=== PATIENT | male | born 1965 | race Asian ===

== ENCOUNTER 2017-08-31 13:56 | Inpatient (IN) | payer OTHER ==
[2017-08-31 15:53] LABS: ADD MAN DIFF? NO
[2017-08-31] MEDS: ONDANSETRON PF 4 MG/2 ML VIAL. IV (15:53)
[2017-08-31] MEDS: IV NORMAL SALINE 1000ML BAG 1,000 ML IV ×3 (15:53→19:51)
[2017-08-31] MEDS: fentaNYL PF VIAL 100 MCG/2 ML VIAL IV (15:56)
[2017-08-31 16:00] LABS: BASO % 0 % (0-3); EOS % 0 % (0-3); HEMATOCRIT 54.4 % (39.0-53.0); HEMOGLOBIN 19.3 g/dL (13.0-17.5); LYMPH # 0.7 x10^3/uL (1.0-4.8); LYMPH % 8 % (24-48); MEAN CORPUSCULAR HEMOGLOBIN 32 pg (25-35); MEAN CORPUSCULAR HGB CONC 36 g/dL (31-37); MEAN CORPUSCULAR VOLUME 90 fL (79-100); MONO # 1.1 x10^3/uL (0.0-1.1); MONO % 12 % (0-9); NEUT # 7.1 x10^3uL (1.8-7.7); NEUT % 79 % (31-73); PLATELET COUNT 190 x10^3/uL (140-400); RED BLOOD COUNT 6.02 x10^6/uL (4.30-5.70); RED CELL DISTRIBUTION WIDTH 12.5 % (11.5-14.5)
[2017-08-31 16:06] LABS: PROTHROMBIN TIME PATIENT 12.1 SEC (11.7-14.0)
[2017-08-31 16:13] LABS: ANION GAP 13 (6-14); BLOOD UREA NITROGEN 54 mg/dL (8-26); CALCIUM 8.9 mg/dL (8.5-10.1); CARBON DIOXIDE 24 mmol/L (21-32); CHLORIDE 94 mmol/L (98-107); GFR 35.1; GLUCOSE 127 mg/dL (70-99); POTASSIUM 4.7 mmol/L (3.5-5.1); SODIUM 131 mmol/L (136-145)
[2017-08-31] MEDS: IOHEXOL 300 MG/ML 100ML VIAL. IV (16:15)
[2017-08-31] MEDS ORDERED: CONTRAST GIVEN MC (16:15)
[2017-08-31 16:17] LABS: ALBUMIN 3.9 g/dL (3.4-5.0); ALK PHOS 102 U/L (46-116); ALT (SGPT) 79 U/L (16-63); AST (SGOT) 71 U/L (15-37); DIRECT BILIRUBIN 0.3 mg/dL (0.0-0.2); LIPASE 238 U/L (73-393); MAGNESIUM 2.6 mg/dL (1.8-2.4); TOTAL BILIRUBIN 1.1 mg/dL (0.2-1.0); TOTAL PROTEIN 9.3 g/dL (6.4-8.2)
[2017-08-31 16:20] LABS: TROPONINI < 0.017 ng/mL (0.000-0.055)
[2017-08-31 16:27] LABS: NT-PRO BNP 37 pg/mL (0-124)
[2017-08-31 16:27] LABS: CKMB INDEX 0.5 % (0-4); CKMB MASS 4.8 ng/mL (0.0-3.6); CREATINE KINASE 969 U/L (39-308)
[2017-08-31 17:00] LABS: LACTIC ACID 1.5 mmol/L (0.4-2.0)
[2017-08-31] MEDS ORDERED: diphenhydrAMINE HCL 25 MG CAPSULE PO (18:30)
[2017-08-31] MEDS ORDERED: MORPHINE SULFATE 2 MG/ML DISP.SYRIN. IV (18:30)
[2017-08-31] MEDS ORDERED: PIP/TAZO PER PHARMACY MC ×2 (18:30)
[2017-08-31] MEDS ORDERED: ACETAMINOPHEN 500 MG TABLET PO (18:30)
[2017-08-31] MEDS ORDERED: ONDANSETRON PF 4 MG/2 ML VIAL. IV (18:30)
[2017-08-31] MEDS: PIPERACILLIN/TAZOBACTAM 3.375 GM in IV NORMAL SALINE 50ML 50 ML IV (18:38)
[2017-08-31 18:48] LABS: BILIRUBIN,URINE NEGATIVE (NEG); CLARITY,URINE CLEAR; COLOR,URINE YELLOW; GLUCOSE,URINE NEGATIVE (NEG); NITRITE,URINE NEGATIVE (NEG); PROTEIN,URINE 30 mg/dL (NEG-TRACE)
[2017-08-31 18:54] LABS: BACTERIA,URINE 0 /HPF (0-FEW); RBC,URINE OCC /HPF (0-2); WBC,URINE 0 /HPF (0-4)
[2017-08-31 18:55] LABS: HYALINE CASTS, URINE FEW /HPF
[2017-08-31] MEDS: IV DEXTROSE 5 %-0.45 % NACL 1,000 ML IV (18:58)
[2017-09-01] MEDS: PIPERACILLIN/TAZOBACTAM 3.375 GM in IV NORMAL SALINE 50ML 50 ML IV ×4 (00:23→18:00)
[2017-09-01 04:17] LABS: ADD MAN DIFF? NO
[2017-09-01 04:35] LABS: BASO % 0 % (0-3); EOS % 0 % (0-3); HEMATOCRIT 42.8 % (39.0-53.0); HEMOGLOBIN 14.7 g/dL (13.0-17.5); LYMPH # 0.9 x10^3/uL (1.0-4.8); LYMPH % 15 % (24-48); MEAN CORPUSCULAR HEMOGLOBIN 32 pg (25-35); MEAN CORPUSCULAR HGB CONC 34 g/dL (31-37); MEAN CORPUSCULAR VOLUME 92 fL (79-100); MONO # 0.8 x10^3/uL (0.0-1.1); MONO % 13 % (0-9); NEUT # 4.5 x10^3uL (1.8-7.7); NEUT % 73 % (31-73); PLATELET COUNT 139 x10^3/uL (140-400); RED BLOOD COUNT 4.65 x10^6/uL (4.30-5.70); RED CELL DISTRIBUTION WIDTH 12.4 % (11.5-14.5); WHITE BLOOD COUNT 6.3 x10^3/uL (4.0-11.0)
[2017-09-01 04:49] LABS: ANION GAP 7 (6-14); BLOOD UREA NITROGEN 36 mg/dL (8-26); CALCIUM 7.2 mg/dL (8.5-10.1); CARBON DIOXIDE 25 mmol/L (21-32); CHLORIDE 104 mmol/L (98-107); CREATININE 1.6 mg/dL (0.7-1.3); GFR 45.4; GLUCOSE 101 mg/dL (70-99); POTASSIUM 4.9 mmol/L (3.5-5.1); SODIUM 136 mmol/L (136-145)
[2017-09-01 05:03] LABS: TROPONINI 0.021 ng/mL (0.000-0.055)
[2017-09-01] MEDS: IV NORMAL SALINE 1000ML BAG 1,000 ML IV ×3 (05:42→18:30)
[2017-09-01 08:13] LABS: TROPONINI 0.017 ng/mL (0.000-0.055)
[2017-09-01] MEDS: HYDROcodone/APAP 5/325MG 1 TAB TABLET PO (08:30)
[2017-09-01] MEDS ORDERED: cefOXitin SODIUM 2 GM in IV DEXTROSE 5% 100 ML IV (08:30)
[2017-09-01] MEDS: IV RINGERS,LACTATED 1000ML 1,000 ML IV ×2 (09:34→15:10)
[2017-09-01] MEDS ORDERED: ONDANSETRON PF 4 MG/2 ML VIAL. IV (09:45)
[2017-09-01] MEDS ORDERED: PROCHLORPERAZINE 10 MG/2 ML VIAL. IV (09:45)
[2017-09-01] MEDS ORDERED: HYDROmorphone 2 MG/ML VIAL IV (09:45)
[2017-09-01] MEDS ORDERED: MORPHINE SULFATE 2 MG/ML DISP.SYRIN. IV (09:45)
[2017-09-01] MEDS ORDERED: fentaNYL PF VIAL 100 MCG/2 ML VIAL IV ×2 (09:45)
[2017-09-01] MEDS ORDERED: LIDOCAINE 1% PF 2 ML VIAL. ID (09:45)
[2017-09-01] MEDS ORDERED: MIDAZOLAM HCL/PF 2 MG/2 ML VIAL. (10:22)
[2017-09-01] MEDS ORDERED: fentaNYL PF VIAL 100 MCG/2 ML VIAL (10:22)
[2017-09-01] MEDS ORDERED: GLYCOPYRROLATE 1 MG/5 ML VIAL. (10:23)
[2017-09-01] MEDS ORDERED: KETOROLAC 30 MG/ML INJ FOR OR. INJ (10:23)
[2017-09-01] MEDS ORDERED: NEOSTIGMINE METHYLSULFATE 5 MG/5 ML SYRINGE. (10:23)
[2017-09-01] MEDS ORDERED: DEXAMETHASONE SOD PHOS 20 MG/5 ML VIAL. (10:23)
[2017-09-01] MEDS ORDERED: ROCURONIUM 50 MG/5 ML VIAL. (10:23)
[2017-09-01] MEDS ORDERED: ONDANSETRON PF 4 MG/2 ML VIAL. (10:23)
[2017-09-01] MEDS ORDERED: PROPOFOL 20 ML IV (10:23)
[2017-09-01] MEDS: BUPIVACAINE-EPI 0.25%-1:200000 50 ML VIAL. (13:35)
[2017-09-01] MEDS ORDERED: LABETALOL 20 MG/4 ML DISP.SYRIN. (14:43)
[2017-09-01] MEDS ORDERED: 0.9 % SODIUM CHLORIDE 10 ML DISP.SYRIN. IV (15:15)
[2017-09-01] MEDS ORDERED: ENOXAPARIN 40 MG/0.4 ML SYRINGE. SQ (16:00)
[2017-09-01] MEDS: ALBUTEROL SULFATE 2.5 MG/3 ML NEBU. NEB (16:20)
[2017-09-01] MEDS: fentaNYL PF VIAL 100 MCG/2 ML VIAL IV (19:27)
[2017-09-01] MEDS: ONDANSETRON PF 4 MG/2 ML VIAL. IV (19:28)
[2017-09-01] MEDS: guaiFENesin DM 200MG/20MG 10 ML SYRUP PO (19:28)
[2017-09-01] MEDS: DOCUSATE SODIUM 100 MG CAPSULE. PO (19:35)
[2017-09-01] MEDS: LACTOBACILLUS RHAMNOSUS GG 1 CAPSULE. PO (19:35)
[2017-09-02] MEDS: IV RINGERS,LACTATED 1000ML 1,000 ML IV ×3 (01:10→21:10)
[2017-09-02] MEDS: IV NORMAL SALINE 1000ML BAG 1,000 ML IV ×2 (02:30→08:29)
[2017-09-02 05:28] LABS: ADD MAN DIFF? NO
[2017-09-02 05:46] LABS: BASO % 0 % (0-3); EOS % 0 % (0-3); HEMATOCRIT 38.6 % (39.0-53.0); HEMOGLOBIN 13.5 g/dL (13.0-17.5); LYMPH # 0.7 x10^3/uL (1.0-4.8); LYMPH % 10 % (24-48); MEAN CORPUSCULAR HEMOGLOBIN 32 pg (25-35); MEAN CORPUSCULAR HGB CONC 35 g/dL (31-37); MEAN CORPUSCULAR VOLUME 93 fL (79-100); MONO # 0.4 x10^3/uL (0.0-1.1); MONO % 5 % (0-9); NEUT # 6.4 x10^3uL (1.8-7.7); NEUT % 85 % (31-73); PLATELET COUNT 106 x10^3/uL (140-400); RED BLOOD COUNT 4.17 x10^6/uL (4.30-5.70); RED CELL DISTRIBUTION WIDTH 12.4 % (11.5-14.5); WHITE BLOOD COUNT 7.6 x10^3/uL (4.0-11.0)
[2017-09-02] MEDS: PIPERACILLIN/TAZOBACTAM 3.375 GM in IV NORMAL SALINE 50ML 50 ML IV ×3 (05:48→12:00)
[2017-09-02 05:57] LABS: ANION GAP 9 (6-14); BLOOD UREA NITROGEN 23 mg/dL (8-26); CALCIUM 7.3 mg/dL (8.5-10.1); CARBON DIOXIDE 19 mmol/L (21-32); CHLORIDE 106 mmol/L (98-107); CREATININE 1.2 mg/dL (0.7-1.3); GFR 63.3; GLUCOSE 113 mg/dL (70-99); POTASSIUM 4.5 mmol/L (3.5-5.1); SODIUM 134 mmol/L (136-145)
[2017-09-02 06:17] LABS: ALBUMIN 2.2 g/dL (3.4-5.0); ALK PHOS 63 U/L (46-116); ALT (SGPT) 45 U/L (16-63); AST (SGOT) 49 U/L (15-37); DIRECT BILIRUBIN 0.2 mg/dL (0.0-0.2); TOTAL BILIRUBIN 0.7 mg/dL (0.2-1.0)
[2017-09-02] MEDS: LACTOBACILLUS RHAMNOSUS GG 1 CAPSULE. PO ×2 (08:26→21:14)
[2017-09-02] MEDS: DOCUSATE SODIUM 100 MG CAPSULE. PO ×2 (08:26→21:14)
[2017-09-02] MEDS: HYDROcodone/APAP 5/325MG 1 TAB TABLET PO ×4 (08:27→23:16)
[2017-09-02] MEDS: ENOXAPARIN 40 MG/0.4 ML SYRINGE. SQ (08:29)
[2017-09-02] MEDS: guaiFENesin DM 200MG/20MG 10 ML SYRUP PO (21:15)
[2017-09-03] MEDS: HYDROcodone/APAP 5/325MG 1 TAB TABLET PO (06:10)
[2017-09-03] MEDS: IV RINGERS,LACTATED 1000ML 1,000 ML IV (06:10)
[2017-09-03 06:13] LABS: ADD MAN DIFF? NO
[2017-09-03 06:35] LABS: ALBUMIN 2.3 g/dL (3.4-5.0); ALBUMIN/GLOBULIN RATIO 0.6 (1.0-1.7); ALK PHOS 74 U/L (46-116); ALT (SGPT) 48 U/L (16-63); ANION GAP 8 (6-14); AST (SGOT) 58 U/L (15-37); BLOOD UREA NITROGEN 21 mg/dL (8-26); BUN/CREATININE RATIO 21 (6-20); CALCIUM 7.6 mg/dL (8.5-10.1); CARBON DIOXIDE 23 mmol/L (21-32); CHLORIDE 103 mmol/L (98-107); GFR 78.2; GLUCOSE 78 mg/dL (70-99); POTASSIUM 4.3 mmol/L (3.5-5.1); SODIUM 134 mmol/L (136-145); TOTAL BILIRUBIN 0.8 mg/dL (0.2-1.0)
[2017-09-03 06:36] LABS: BASO % 0 % (0-3); EOS % 0 % (0-3); HEMATOCRIT 42.1 % (39.0-53.0); HEMOGLOBIN 14.6 g/dL (13.0-17.5); LYMPH # 1.6 x10^3/uL (1.0-4.8); LYMPH % 22 % (24-48); MEAN CORPUSCULAR HEMOGLOBIN 32 pg (25-35); MEAN CORPUSCULAR HGB CONC 35 g/dL (31-37); MEAN CORPUSCULAR VOLUME 92 fL (79-100); MONO # 0.5 x10^3/uL (0.0-1.1); MONO % 8 % (0-9); NEUT # 4.9 x10^3uL (1.8-7.7); NEUT % 70 % (31-73); PLATELET COUNT 117 x10^3/uL (140-400); RED BLOOD COUNT 4.57 x10^6/uL (4.30-5.70); RED CELL DISTRIBUTION WIDTH 12.5 % (11.5-14.5); WHITE BLOOD COUNT 7.1 x10^3/uL (4.0-11.0)
[2017-09-03] MEDS ORDERED: cloNIDine HCL 0.1 MG TABLET PO (08:45)
[2017-09-03] MEDS: ENOXAPARIN 40 MG/0.4 ML SYRINGE. SQ (09:00)
[2017-09-03] MEDS: DOCUSATE SODIUM 100 MG CAPSULE. PO (09:40)
[2017-09-03] MEDS: LACTOBACILLUS RHAMNOSUS GG 1 CAPSULE. PO (09:40)
[2017-09-03] MEDS: FLU VACC QS2017-18 (36MOS+)/PF 0.5 ML SYRINGE. VAX IM (13:47)
== END 2017-09-03 14:00 | disposition home or self-care (01) | DRG 341 ==
LOC: ER 13:56 → 4 NORTH 18:00
PROC: 0DTJ4ZZ Resection of Appendix, Percutaneous Endoscopic Approach (ICD-10-PCS; principal; 2017-09-01 11:00)
DX: K37 Unspecified appendicitis (principal); N17.0 Acute kidney failure with tubular necrosis; D69.6 Thrombocytopenia, unspecified; E87.8 Other disorders of electrolyte and fluid balance, not elsewhere classified; R65.10 Systemic inflammatory response syndrome (SIRS) of non-infectious origin without acute organ dysfunction; E83.41 Hypermagnesemia; E87.1 Hypo-osmolality and hyponatremia; E86.0 Dehydration; R74.0 Nonspecific elevation of levels of transaminase and lactic acid dehydrogenase [LDH]; R79.89 Other specified abnormal findings of blood chemistry; R91.8 Other nonspecific abnormal finding of lung field; R00.0 Tachycardia, unspecified
CPT/HCPCS: 36415; 71046; 74176; 80048; 80053; 80076; 81001; 82553; 83605; 83690; 83735; 83880; 84443; 84484; 85025; 85610; 87040; 88304; 90686; 93005; 96361; 96365; 96375; 97161-GP; 97165-GO; 99285; 99285-25; J1100; J1885; J2250; J2405; J2543; J2704; J2710; J3010; J3490; J7030; J7120; J7613